=== PATIENT | female | born 1980 | race Caucasian/White ===

== ENCOUNTER 2023-12-01 18:23 | Emergency (ER) | payer SELFPAY ==
[~2023-12-01] VITALS: Ht 157.5 cm; Wt 63.6 kg
[2023-12-01 18:34] VITALS: TEMP 98.2
[2023-12-01] MEDS ORDERED: FOLI0.4T6 PO (18:37)
[2023-12-01] MEDS ORDERED: FLUT1BLS19 IH (18:37)
[2023-12-01] MEDS ORDERED: ALBU18HF12 IH (18:37)
[2023-12-01] MEDS: ACETAMINOPHEN 500 MG TABLET PO ONE (19:29)
[2023-12-01 20:10] LABS: BASOPHILS % (AUTO) 0.4 % (0.0-2.0); EOSINOPHILS % (AUTO) 0.1 % (1.0-6.0); HEMATOCRIT 38.6 % (36-46); HEMOGLOBIN 12.9 g/dL (12.0-16.0); LYMPHOCYTES # (AUTO) 0.8 K/uL (1.0-4.8); LYMPHOCYTES % (AUTO) 8.4 % (22.0-44.0); MEAN CORPUSCULAR HEMOGLOBIN 30.4 pg (26.0-34.0); MEAN CORPUSCULAR HGB CONC 33.3 G/dL (31.0-37.0); MEAN CORPUSCULAR VOLUME 92 fL (80-100); MONOCYTES # (AUTO) 0.1 K/uL (0.1-1.0); MONOCYTES % (AUTO) 0.9 % (2.0-9.0); PLATELET COUNT (AUTO) 255 K/uL (150-450); RED BLOOD CELL COUNT(AUTO) 4.22 MIL/uL (4.00-5.20); RED CELL DISTRIBUTION WIDTH 14.1 % (11.5-14.5); WHITE BLOOD COUNT (AUTO) 9.9 K/uL (4.5-11.0)
[2023-12-01 20:17] LABS: NEUTROPHILS % (AUTO) 90.2 % (40.0-70.0)
[2023-12-01 21:29] VITALS: BP 135/85; PULSE 76; RESP 18; O2SAT 99
== END 2023-12-01 21:47 | disposition home or self-care (01) ==
LOC: EMS 18:29
DX: N92.1 Excessive and frequent menstruation with irregular cycle (principal); D21.9 Benign neoplasm of connective and other soft tissue, unspecified; J45.909 Unspecified asthma, uncomplicated; Z98.51 Tubal ligation status; Z98.890 Other specified postprocedural states
CPT/HCPCS: 76801; 84702; 85025; 86901; 99284